=== PATIENT | female | born 1960 | race Caucasian/White ===

== ENCOUNTER 2016-09-16 09:55 | Emergency (ER) | payer OTHER ==
[~2016-09-16] VITALS: Wt 64.3 kg
[2016-09-16] MEDS ORDERED: SOD CHLORIDE 0.9% 1,000 ML IV STA (10:32)
[2016-09-16] MEDS ORDERED: BUDE6HFA INHALATION (10:39)
[2016-09-16 10:59] LABS: BASOPHILS % 0.7 % (0.0-2.0); CHLORIDE 96 mmol/L (97-110); EOSINOPHILS # 0.2 10^3/ul (0.0-0.5); EOSINOPHILS % 3.8 % (0.0-7.0); HEMATOCRIT 38.9 % (37.0-47.0); HEMOGLOBIN 13.1 g/dl (12.0-16.0); LYMPHOCYTES # 1.5 10^3/ul (0.8-2.9); LYMPHOCYTES % 24.5 % (15.0-51.0); MEAN CORPUSCULAR HEMOGLOBIN 29.7 pg (29.0-33.0); MEAN CORPUSCULAR HGB CONC 33.6 g/dl (32.0-37.0); MEAN CORPUSCULAR VOLUME 88.4 fl (82.0-101.0); MEAN PLATELET VOLUME 8.5 fl (7.4-10.4); MONOCYTE # 0.6 10^3/ul (0.3-0.9); MONOCYTES % 9.4 % (0.0-11.0); NEUTROPHIL # 3.9 10^3/ul (1.6-7.5); NEUTROPHILS % 61.6 % (39.0-77.0); PLATELET COUNT 238 10^3/UL (140-440); RED CELL DISTRIBUTION WIDTH 14.5 % (11.5-14.5); UNCORRECTED WBC 6.3 10^3/ul (4.8-10.8); WHITE BLOOD COUNT 6.3 10^3/ul (4.8-10.8)
[2016-09-16 11:00] LABS: POTASSIUM 3.5 mmol/L (3.5-5.1); SODIUM 139 mmol/L (135-144)
[2016-09-16 11:02] LABS: ANION GAP 18 (8-16); CARBON DIOXIDE 29 mmol/L (21-31); CREATININE 0.76 mg/dl (0.44-1.00)
--- NOTE | 2016-09-16 11:02 | RADRPT ---
PROCEDURE: XR Chest. CLINICAL INDICATION: Chest pain TECHNIQUE: A single AP view of the chest was obtained. COMPARISON: None available FINDINGS: Lung volumes are low with compressive changes, vascular crowding and mild elevation of the left diap hragm. No focal airspace opacity, pleural effusion or pneumothorax is seen. The cardiomediastinal s ilhouette is within normal limits for size. The osseous structures are unremarkable. IMPRESSION: 1. Low lung volumes with compressive changes. 2. Otherwise, unremarkable chest x-ray. RPTAT: HH .Bárbara Barrios MD, MD Date Time Electronically viewed and signed by .Bárbara Barrios MD, MD on 09/16/2016 11:02 .G/
[2016-09-16 11:03] LABS: BLOOD UREA NITROGEN 8 mg/dl (7-20); CALCIUM 8.5 mg/dl (8.4-10.2); GLUCOSE 87 mg/dl (70-220)
[2016-09-16 11:04] LABS: INR 0.99; PROTIME 13.1 Sec (12.2-14.2)
[2016-09-16 11:07] LABS: CONDITION 1; LH ANALYZER COMMENTS 1
[2016-09-16 11:08] LABS: PARTIAL THROMBOPLASTIN TIME 29.1 Sec (25.0-35.0)
[2016-09-16 11:27] LABS: TROPONIN-I < 0.012 ng/ml (0.00-0.12)
--- NOTE | 2016-09-16 11:44 | ERD ---
ER Documentation Chief Complaint Date/Time DATE: 09/16/16 TIME: 11:42 Chief Complaint syncopal episode yesterday while at pharmacy, mild neck pain no neuro def HPI This is a 56-year-old female presents to the emergency room for evaluation of a syncopal episode that she had yesterday. The patient has had no syncope today, no chest pain, no shortness of breath, no diaphoresis, no palpitations. This patient states that her mother is in the hospital and is scheduled for surgery today. The patient states that she is not eating food, drinking water in the past couple days because of stress level. She states that she was at the pharmacy yesterday, started feeling faint. She states that she felt like she started to sweat and momentarily passed out. The patient called her primary care physician today, and stated that her primary care physician instructed her to come to the ER ROS All systems reviewed and are negative except as per history of present illness. Medications Home Meds Reported Medications Budesonide-Formoterol Fumarate* (Symbicort*) 160-4.5 Hfa.aer.ad, 2 PUFF INHALATION BID, #1 EACH 09/16/16 Allergies Allergies: Coded Allergies: No Known Allergy (Unverified , 09/16/16) PMhx/Soc Medical and Surgical Hx: Unable to obtain Hx Alcohol Use: Yes Hx Substance Use: No Hx Tobacco Use: No Smoking Status: Never smoker Physical Exam Vitals Vital Signs Date Time Temp Pulse Resp B/P Pulse Ox O2 Delivery O2 Flow Rate FiO2 09/16/16 09:58 99.0 99 21 114/73 99 Physical Exam INITIAL VITAL SIGNS: Reviewed by me GENERAL: The patient is well developed and appropriate for usual state of health in no apparent distress HEENT: Pupils equal, round, and reactive to light. EOMI. There is no scleral icterus. NECK: C-spine is soft and supple, there is no meningismus. There is no cervical lymphadenopathy. LUNGS: Clear to auscultation bilaterally. There are no rales, wheezes or rhonchi. HEART: Regular rate and rhythm, no murmurs, clicks, rubs or gallops. ABDOMEN: Soft, non-tender, non-distended. There are bowel sounds in all four quadrants. No rebound or guarding. EXTREMITIES: There is no peripheral cyanosis or edema. No focal swelling or erythema. NEUROLOGICAL: The patient moves all four extremities with 5/5 strength. Cranial nerves II - XII are intact. Normal gait. Alert and oriented SKIN: There is no apparent rash or petechiae. HEME/LYMPHATIC: There is no evidence of excessive bruising or lymphedema. PSYCHIATRIC: The patient does not appear anxious or depressed. Result Diagram: 09/16/16 1040 09/16/16 1040 Results 24 hrs Laboratory Tests Test 09/16/16 10:40 Activated Partial Thromboplast Time 29.1Sec Anion Gap 18 Basophils # 0.010^3/ul Basophils % 0.7% Blood Morphology Comment Blood Urea Nitrogen 8mg/dl Calcium Level 8.5mg/dl Carbon Dioxide Level 29mmol/L Chloride Level 96mmol/L Creatinine 0.76mg/dl Eosinophils # 0.210^3/ul Eosinophils % 3.8% Glucose Level 87mg/dl Hematocrit 38.9% Hemoglobin 13.1g/dl INR International Normalized Ratio 0.99 Lymphocytes # 1.510^3/ul Lymphocytes % 24.5% Mean Corpuscular Hemoglobin 29.7pg Mean Corpuscular Hemoglobin Concent 33.6g/dl Mean Corpuscular Volume 88.4fl Mean Platelet Volume 8.5fl Monocytes # 0.610^3/ul Monocytes % 9.4% Neutrophils # 3.910^3/ul Neutrophils % 61.6% Nucleated Red Blood Cells # 0.010^3/ul Nucleated Red Blood Cells % 0.0/100WBC Platelet Count 14110^3/UL Potassium Level 3.5mmol/L Prothrombin Time 13.1Sec Prothrombin Time Ratio 1.0 Red Blood Count 4.4010^6/ul Red Cell Distribution Width 14.5% Sodium Level 139mmol/L Troponin I < 0.012ng/ml White Blood Count 6.310^3/ul Current Medications Medications (Trade) Dose Ordered Sig/Sheri Route PRN Reason Start Time Stop Time Status Last Admin Dose Admin Sodium Chloride (NS) 1,000 ml @ 1,000 mls/hr Q1H STAT IV 09/16/16 10:32 09/16/16 11:31 DC 09/16/16 10:57 Procedures/MDM EKG: Rate/Rhythm: [Normal Sinus Rhythm] QRS, ST, T-waves: [No changes consistent w/ acute ischemia] Impression: [No evidence of ischemia or arrhythmia] Chest X-ray 1V Interpreted by me: Soft Tissue: No acute abnormalities Bones: No acute abnormalities Mediastinum/Cardiac Silhouette/Lungs: [No acute abnormalities] This 56-year-old female presents to the ER for evaluation of a syncopal episode which occurred yesterday. When I evaluated this patient today she is in no acute distress, neurologically intact, and he was dynamically stable. EKG is nonischemic, troponin normal, chest x-ray is normal. This patient likely suffered from a vasovagal syncope secondary to dehydration. The patient did state that after drinking water this morning she felt much better. The patient was given 1 L of fluids in the ER. She is walking in the ER no difficulty. She will be discharged home at this time. Departure Diagnosis: Primary Impression: Syncope Condition: Stable OMARI FELDMAN DO Sep 16, 2016 11:44
[2016-09-16 12:04] LABS: ADD UMIC NO; URINE BILIRUBIN (Dip) NEGATIVE (NEGATIVE); URINE BLOOD (Dip) NEGATIVE (NEGATIVE); URINE COLOR LT. YELLOW (YELLOW); URINE GLUCOSE (Dip) NEGATIVE (NEGATIVE); URINE KETONES (Dip) NEGATIVE (NEGATIVE); URINE LEUKOCYTE ESTERASE (Dip) NEGATIVE (NEGATIVE); URINE NITRITE (Dip) NEGATIVE (NEGATIVE); URINE TOTAL PROTEIN (Dip) NEGATIVE (NEGATIVE); URINE UROBILINOGEN (Dip) 0.2 E.U./dL (0.1-1.0)
[2016-09-16 12:26] VITALS: BP 99/59; PULSE 89; RESP 12; TEMP 97.8
== END 2016-09-16 12:28 | disposition home or self-care (01) ==
LOC: E/R 09:55
DX: R55 Syncope and collapse (principal)
CPT/HCPCS: 71010; 80048; 81003; 84484; 85025; 85610; 85730; 93005; 99285; J7030